=== PATIENT | female | born 1970 | race Hispanic/Latino ===

== ENCOUNTER 2018-10-14 15:26 | Inpatient (IN) | payer SELFPAY ==
[~2018-10-14] VITALS: Ht 152.4 cm; Wt 88.6 kg
[2018-10-14 16:08] LABS: EOSINOPHILS % (AUTO) 5.4 % (0.0-8.0); HEMATOCRIT 39.4 % (36-48); LYMPHOCYTES % (AUTO) 17.4 % (21.0-51.0); MEAN CORPUSCULAR HGB CONC 33.2 g/dL (32.0-36.0); MEAN CORPUSCULAR VOLUME 81.2 fL (79-99); MONOCYTES % (AUTO) 8.6 % (3.0-13.0); NEUTROPHILS % (AUTO) 67.6 % (40.0-77.0); PLATELET COUNT (AUTO) 358 K/uL (130-400); RED BLOOD CELL COUNT(AUTO) 4.85 MIL/uL (4.00-5.50); RED CELL DISTRIBUTION WIDTH 18.1 % (11.0-15.5); WHITE BLOOD COUNT (AUTO) 10.9 K/uL (4.8-10.8)
[2018-10-14 16:23] LABS: CREATININE 0.7 mg/dL (0.5-1.5); POTASSIUM 3.9 mmol/L (3.5-5.1)
[2018-10-14] MEDS ORDERED: CEFTRIAXONE SODIUM 1 GM ONE (16:25)
[2018-10-14 16:27] LABS: ALBUMIN 3.2 g/dL (3.5-5.0); BILIRUBIN,DIRECT 0.1 mg/dL (0.0-0.3); BILIRUBIN,TOTAL 0.1 mg/dL (0.2-1.0)
[2018-10-14] MEDS ORDERED: TETANUS/DIPHTHERIA TOXOID [ADULT] 0.5 ML VIAL IM ONE (16:37)
[2018-10-14 17:14] LABS: ERYTHROCYTE SEDIMENTATION RATE 28 MM/HR (0-20)
[2018-10-14 17:50] LABS: INR 0.94 (0.85-1.15); PARTIAL THROMBOPLASTIN TIME 30.2 SEC (26.3-35.5); PROTHROMBIN TIME 9.9 SEC (9.6-11.6)
[2018-10-14] MEDS ORDERED: VANCOMYCIN 1.75 GM in SODIUM CHLORIDE 0.9% 250 ML IV ONE (18:00)
[2018-10-14] MEDS ORDERED: ACETAMINOPHEN 325 MG TAB PO PRN (19:00)
[2018-10-14] MEDS ORDERED: VANCOMYCIN PROTOCOL PER PHARMACY IV SCH (19:30)
[2018-10-14] MEDS ORDERED: FAMOTIDINE 20MG TAB 20 MG TAB ONE (19:37)
[2018-10-14] MEDS ORDERED: ACETAMINOPHEN-CODEINE 300/30MG TAB ONE (19:37)
[2018-10-14] MEDS ORDERED: ONDANSETRON HCL MDV 20ML 2 MG/ML VIAL IVP PRN (20:15)
[2018-10-14 20:55] VITALS: BP 142/92
[2018-10-14] MEDS: FAMOTIDINE 20MG TAB 20 MG TAB PO SCH (21:00)
[2018-10-14] MEDS: SODIUM CHLORIDE 0.9% 1000ML 1,000 ML IV SCH (21:20)
[2018-10-14 23:41] VITALS: BP 122/62
[2018-10-15] MEDS: MORPHINE SULFATE 2 MG/ML 1ML SYG IVP PRN ×2 (03:12→10:54)
[2018-10-15 04:00] VITALS: BP 126/61
[2018-10-15 04:45] LABS: HEMATOCRIT 38.5 % (36-48); MEAN CORPUSCULAR HEMOGLOBIN 27.3 pg (27.0-33.0); MEAN CORPUSCULAR HGB CONC 33.2 g/dL (32.0-36.0); MEAN CORPUSCULAR VOLUME 82.3 fL (79-99); PLATELET COUNT (AUTO) 306 K/uL (130-400); RED BLOOD CELL COUNT(AUTO) 4.69 MIL/uL (4.00-5.50); RED CELL DISTRIBUTION WIDTH 18.4 % (11.0-15.5)
[2018-10-15 04:58] LABS: CREATININE 0.6 mg/dL (0.5-1.5)
[2018-10-15] MEDS: VANCOMYCIN 1GM+NS 250ML 250 ML IV SCH ×2 (05:39→18:56)
[2018-10-15] MEDS: SODIUM CHLORIDE 0.9% 1000ML 1,000 ML IV SCH ×2 (05:39→17:03)
[2018-10-15 08:00] VITALS: BP 125/62
[2018-10-15] MEDS: ENOXAPARIN SODIUM 30 MG/0.3 ML SQ SCH (09:00)
[2018-10-15] MEDS: FAMOTIDINE 20MG TAB 20 MG TAB PO SCH ×2 (09:00→20:44)
[2018-10-15] MEDS ORDERED: LEVOFLOXACIN 500 MG/D5W 100 ML 100 ML IV SCH (10:00)
[2018-10-15] MEDS ORDERED: CEFTRIAXONE SODIUM 1 GM IVP SCH (10:30)
--- NOTE | 2018-10-15 11:00 | NUR ---
CM Met w pt in room, alone, NPO for pending surgery ; pt [id number], is in discomfort due to cellulitis in hand. 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 Penidng surgery by dr. Villatoro. Is indp of [employer] no DME, DCP is home ; willget help w any dressing from her employer, she believes. Goes to [facility] when needs md services. CM to follow Addendum: 10/15/18 at 1850 by DASHAWN SCHREIBER RN CM Amended: Links added.
[2018-10-15 12:00] VITALS: BP 147/74
[2018-10-15 16:00] VITALS: BP 115/59
[2018-10-15] MEDS ORDERED: ONDANSETRON HCL 4 MG/2 ML VIAL IVP PRN (16:50)
[2018-10-15] MEDS ORDERED: ONDANSETRON HCL 4 MG/2 ML VIAL ONE (16:51)
[2018-10-15] MEDS: CEFTRIAXONE SODIUM 1 GM IVP SCH ×2 (16:54→17:01)
[2018-10-15] MEDS: MORPHINE SULFATE 4 MG/1ML SYG IV PRN (17:01)
--- NOTE | 2018-10-15 17:43 | NUR ---
[facility]ON ON FLOOR UPDATE SURGERY FOR PATIENT ( DR GARCIA STILL IN [place]) TALKED TO PATIENT FAMILY AGREE FOR SURGERY IN AM , DIET ORDERED AND TRAY SENT TO ROOM ORDER PLACED FOR I&D IN AM 0730 SCHEDULED. PATIENT SABLE ON ABD AND MORPHINE FOR PAIN
[2018-10-15 20:00] VITALS: BP 118/67
[2018-10-16] VITALS (20 sets, daily range): BP systolic 97–153; BP diastolic 59–94
[2018-10-16] MEDS: SODIUM CHLORIDE 0.9% 1000ML 1,000 ML IV SCH ×3 (00:34→20:21)
[2018-10-16 04:37] LABS: HEMATOCRIT 39.1 % (36-48); MEAN CORPUSCULAR HEMOGLOBIN 26.8 pg (27.0-33.0); MEAN CORPUSCULAR HGB CONC 32.4 g/dL (32.0-36.0); MEAN CORPUSCULAR VOLUME 82.7 fL (79-99); NUCLEATED RED BLOOD CELLS 0.1 % (0.0-0.19); PLATELET COUNT (AUTO) 340 K/uL (130-400); RED BLOOD CELL COUNT(AUTO) 4.73 MIL/uL (4.00-5.50); RED CELL DISTRIBUTION WIDTH 18.5 % (11.0-15.5); WHITE BLOOD COUNT (AUTO) 10.4 K/uL (4.8-10.8)
[2018-10-16 05:01] LABS: CREATININE 0.6 mg/dL (0.5-1.5); POTASSIUM 4.3 mmol/L (3.5-5.1)
[2018-10-16] MEDS: VANCOMYCIN 1GM+NS 250ML 250 ML IV SCH ×2 (06:10→18:46)
[2018-10-16] MEDS ORDERED: ONDANSETRON HCL 4 MG/2 ML VIAL ONE (07:32)
[2018-10-16] MEDS ORDERED: LIDOCAINE PF 2% 5ML ABBOJECT ONE (07:32)
[2018-10-16] MEDS ORDERED: FENTANYL CITRATE PF 50 MCG/1 ML 2ML VIAL ONE ×2 (07:32→08:19)
[2018-10-16] MEDS ORDERED: MIDAZOLAM HCL 1 MG/ML 2ML VIAL ONE (07:32)
[2018-10-16] MEDS ORDERED: PROPOFOL 10 MG/ML 20ML VIAL IV ONE (07:32)
[2018-10-16] MEDS ORDERED: DEXAMETHASONE SOD PHOSPHATE 10MG/ML 1ML VIAL ONE (07:32)
[2018-10-16] MEDS ORDERED: MEPERIDINE-PF 25 MG/ML SYG ONE (08:11)
[2018-10-16] MEDS: MORPHINE SULFATE 4 MG/1ML SYG IV PRN (08:32)
[2018-10-16] MEDS ORDERED: KETOROLAC TROMETHAMINE 30MG/ML ONE (08:59)
[2018-10-16] MEDS: FAMOTIDINE 20MG TAB 20 MG TAB PO SCH ×2 (09:00→20:20)
[2018-10-16] MEDS: ENOXAPARIN SODIUM 30 MG/0.3 ML SQ SCH (09:00)
[2018-10-16] MEDS: ACETAMINOPHEN-CODEINE 300/30MG TAB PO PRN ×2 (15:13→22:07)
[2018-10-16] MEDS ORDERED: PHARMACY COMMUNICATION MISC SCH (16:30)
[2018-10-16] MEDS ORDERED: VANCOMYCIN 500MG+NS 100ML 100 ML IV ONE (22:00)
[2018-10-16] MEDS: VANCOMYCIN 1GM+NS 250ML 250 ML IV ONE ×2 (22:08→22:11)
[2018-10-17 00:20] VITALS: BP 129/75
[2018-10-17 00:50] VITALS: BP 129/70
[2018-10-17] MEDS: VANCOMYCIN 1GM+NS 250ML 250 ML IV SCH ×2 (03:25→10:43)
[2018-10-17] MEDS: ACETAMINOPHEN-CODEINE 300/30MG TAB PO PRN (03:37)
[2018-10-17 04:18] VITALS: BP 140/79
[2018-10-17 08:00] VITALS: BP 141/76
[2018-10-17] MEDS: FAMOTIDINE 20MG TAB 20 MG TAB PO SCH (08:36)
[2018-10-17] MEDS: ENOXAPARIN SODIUM 30 MG/0.3 ML SQ SCH (08:37)
[2018-10-17] MEDS ORDERED: ZOSYN 3.375GM+NS 50ML 50 ML IV ONE (11:53)
[2018-10-17 12:00] VITALS: BP 147/76
[2018-10-17] MEDS ORDERED: ZOSYN 3.375GM+NS 50ML 50 ML IV SCH (13:00)
[2018-10-17 16:00] VITALS: BP 155/86
[2018-10-17] MEDS ORDERED: CEPH500B PO (16:23)
--- NOTE | 2018-10-17 17:00 | NUR ---
DISCHARGE PATIENT GIVEN DISCHARGE INSTRUCTIONS VIA TEACH BACK. 20G PIV TO LAC DISCONTINUED, TIP INTACT. RX GIVEN FOR CEPHALEXIN 500MG 1 CAP PO Q6 X 7 DAYS. PATIENT TO FOLLOW UP WITH DR. GARCIA IN 1 WEEK. PATIENT TO KEEP DRESSING TO LEFT HAND 3RD DIGIT CLEAN AND DRY. REPORT SIGNS AND SYMPTOMS OF INFECTION TO MD OR SEEK EMERGENCY MEDICAL ATTENTION. DAUGHTER AT BEDSIDE TO TRANSPORT PATIENT HOME. PATIENT STABLE AT THIS TIME.
[2018-10-17] MEDS ORDERED: CEFTRIAXONE SODIUM 1 GM IVP SCH (17:45)
== END 2018-10-17 16:45 | disposition home or self-care (01) | DRG 982 ==
LOC: EDH 15:26 → EDHIP 15:27 → 3CH 20:30
PROVIDERS: ADMIT Internal Medicine; ATTEND Internal Medicine
PROC: 0LB80ZZ Excision of Left Hand Tendon, Open Approach (ICD-10-PCS; principal; 2018-10-16 07:30)
DX: L03.012 Cellulitis of left finger (principal); L02.512 Cutaneous abscess of left hand; E44.1 Mild protein-calorie malnutrition; Z68.38 Body mass index [BMI] 38.0-38.9, adult; E66.9 Obesity, unspecified; E03.9 Hypothyroidism, unspecified; E11.9 Type 2 diabetes mellitus without complications; E78.5 Hyperlipidemia, unspecified; I10 Essential (primary) hypertension; Z79.84 Long term (current) use of oral hypoglycemic drugs; Z87.442 Personal history of urinary calculi; Z90.49 Acquired absence of other specified parts of digestive tract; Z83.3 Family history of diabetes mellitus; Z82.49 Family history of ischemic heart disease and other diseases of the circulatory system
CPT/HCPCS: 36415; 71045; 73140; 80048; 80076; 80202; 81025; 85025; 85027; 85610; 85651; 85730; 86140; 87070; 87076; 87077; 87186; 90714; 93005; A4218; G0378; J0696; J1100; J1650; J1885; J2001; J2175; J2250; J2270; J2405; J2543; J2704; J3010; J3370; J7030

== ENCOUNTER → 2024-04-28 | Outpatient (CLI) | payer OTHER ==
[~2024-04-28] MED LIST: CEPH500B PO
--- NOTE | 2024-04-28 10:27 | HMCIMG ---
CT HEART SAVER PROMOTIONAL HISTORY: Calcium scoring COMPARISON: None TECHNIQUE: Computed tomography of the heart was performed with ECG gating and suspended respiration. Postprocessing was performed on a computer workstation to obtain diastolic phase images, determine calcium score and provide a quantitative assessment of extent of disease. This CT included only the heart. HeartSaver score is 360.5. Please see cardiac calcium score report. The available CT chest images show no acute finding. CT was performed with one or more following dose reduction techniques: automated exposure control, adjustment of the mA and kv according to patient's size, or use of a iterative reconstruction technique.
== END | disposition home or self-care (01) ==
LOC: RAH 08:30
PROVIDERS: ATTEND Internal Medicine Cardiovascular Disease
DX: Z13.6 Encounter for screening for cardiovascular disorders (principal)
CPT/HCPCS: 75571